=== PATIENT | female | born 1985 ===

== ENCOUNTER 2021-05-27 19:07 | Emergency (ER) | payer SELFPAY ==
[~2021-05-27] VITALS: Ht 157.5 cm; Wt 61.2 kg
[2021-05-27] MEDS ORDERED: ONDANSETRON ODT4 MG PO (20:20)
[2021-05-27] MEDS ORDERED: SODIUM CHLORIDE 0.9% 50ML 50 ML ONE (22:15)
[2021-05-27] MEDS ORDERED: ONDANSETRON HCL INJ 2MG/ML 2ML 2 MG/ML VIAL ONE (22:26)
[2021-05-27] MEDS ORDERED: CASIRIVIMAB/IMDEVIMAB 10 ML in SODIUM CHLORIDE 0.9% 100 ML IV ONE (22:45)
[2021-05-28] MEDS ORDERED: AZITHROMYCIN250 MG PO (06:43)
[2021-05-28] MEDS ORDERED: DEXAMETHASONE6 MG PO (06:45)
== END 2021-05-27 23:55 | disposition home or self-care (01) ==
LOC: FSED 19:37
DX: R05 Cough (principal); U07.1 COVID-19; B34.9 Viral infection, unspecified
CPT/HCPCS: 99283; J2405; J7050; U0002